=== PATIENT | female | born 1940 | race Caucasian/White ===

== ENCOUNTER 2016-12-30 09:41 | Emergency (ER) | payer MEDICARE, BC ==
[2016-12-30] MEDS ORDERED: Acetaminophen 325 MG Tab PO ONE (10:29)
[2016-12-30] MEDS ORDERED: Sodium Chloride 0.9% 10 ML Syringe FLUSH PRN ×2 (10:29)
[2016-12-30] MEDS ORDERED: Sodium Chloride 0.9% 1,000 ML IV SCH (10:30)
--- NOTE | 2016-12-30 10:43 | EDM.PDOC ---
ED HPI GENERAL MEDICAL PROBLEM - General Chief Complaint: Neuro Symptoms/Deficits Stated Complaint: NERVE TWITCHING, OUT OF BALANCE AND SLURRED SPEACH Time Seen by Provider: 12/30/16 12:00 Source of Information: Reports: Patient, Family History Limitations: Reports: No Limitations - History of Present Illness INITIAL COMMENTS - FREE TEXT/NARRATIVE: Here from out of town not feeling well for past 2 days. Having chills with rigors last nite. More confused per . No local neuro loss. No hx of stroke in past. Denies nausea or vomiting, no cough, no urinary sxs. has hx of bi-polar taking wellbuter, zyprexia and klonapin Onset: Gradual Onset Date: 12/29/16 Duration: Getting Worse Location: Reports: Generalized Quality: Reports: Ache Severity: Mild Improves with: Reports: None Worsens with: Reports: None Associated Symptoms: Reports: Fever/Chills, Malaise, Weakness Back Pain Score (Numeric/FACES): 6 Bilateral Leg Pain Score (Numeric/FACES): 4 - Related Data Allergies Allergy/AdvReac Type Severity Reaction Status Date / Time Sulfa (Sulfonamide Allergy Cannot Verified 12/30/16 10:04 Antibiotics) Remember Home Meds: Home Meds Azithromycin [IJD: Azithromycin] 250 mg PO DAILY #4 tab 12/30/16 [Rx] Ca Carbonate/Vitamin D3/Vit K [Calcium + D Soft Chewable Tab] 12/30/16 [History ] ClonazePAM [KlonoPIN] 0.5 mg PO TID 12/30/16 [History] Hydrocodone/Acetaminophen [Hydrocodon-Acetaminophen 5-325] 1 tab PO ASDIRECTED PRN 12/30/16 [History] OLANZapine [ZyPREXA Zydis] 10 mg PO BEDTIME 12/30/16 [History] buPROPion [Wellbutrin] 75 mg PO BID 12/30/16 [History] diphenhydrAMINE HCl [Sleep Aid] 12/30/16 [History] traMADol [Ultram] 12/30/16 [History] Past Medical History HEENT History: Reports: Hard of Hearing, Other (See Below) Other HEENT History: [place] Musculoskeletal History: Reports: Arthritis, Back Pain, Chronic Psychiatric History: Reports: Bipolar Hematologic History: Reports: Blood Transfusion(s) - Past Surgical History Female Surgical History: Reports: Cystectomy Musculoskeletal Surgical History: Reports: Arthroscopic Procedure, Shoulder Replacement, Shoulder Surgery Other Musculoskeletal Surgeries/Procedures:: back surgery Social & Family History - Tobacco Use Smoking Status *Q: Never Smoker - Caffeine Use Caffeine Use: Reports: Soda - Recreational Drug Use Recreational Drug Use: No ED ROS GENERAL - Review of Systems Review Of Systems: See Below Constitutional: Reports: Chills, Malaise, Weakness HEENT: Reports: No Symptoms Respiratory: Reports: No Symptoms Cardiovascular: Reports: No Symptoms Endocrine: Reports: Fatigue GI/Abdominal: Reports: No Symptoms : Reports: No Symptoms Musculoskeletal: Reports: Muscle Pain Skin: Reports: No Symptoms Neurological: Reports: Confusion, Difficulty Walking Psychiatric: Reports: No Symptoms Hematologic/Lymphatic: Reports: No Symptoms Immunologic: Reports: No Symptoms ED EXAM, SEPSIS - Physical Exam Exam: See Below Exam Limited By: No Limitations General Appearance: Alert, WD/WN Ears: Normal External Exam, Normal Canal, Normal TMs Nose: Normal Inspection Throat/Mouth: Normal Inspection, Normal Oropharynx Head: Atraumatic, Normocephalic Neck: Normal Inspection Respiratory/Chest: No Respiratory Distress, Lungs Clear, No Accessory Muscle Use Cardiovascular: Normal Peripheral Pulses, Regular Rate, Rhythm, No Edema, No Murmur, Tachycardia GI/Abdominal: Normal Bowel Sounds, Soft, Non-Tender, No Distention, No Abnormal Bruit Back: Normal Inspection Extremities: Normal Inspection, Normal Range of Motion, Normal Capillary Refill Neurological: Alert, Oriented, CN II-XII Intact, Normal Reflexes, No Motor/ Sensory Deficits Psychiatric: Normal Affect, Flat Affect Skin: Warm, Dry Lymphatic: Left: No Adenopathy Course - Vital Signs Last Recorded V/S: Last Vital Signs Temp 38.2 C H 12/30/16 12:41 Pulse 98 12/30/16 12:41 Resp 20 12/30/16 12:41 BP 130/72 12/30/16 12:41 Pulse Ox 93 L 12/30/16 12:41 - Orders/Labs/Meds Orders: Active Orders 24 hr Category Date Time Status Peripheral IV Care [RC] . DIRECTED Care 12/30/16 10:31 Active Up With Assistance [RC] ASDIRECTED Care 12/30/16 10:29 Active Vital Signs [RC] Q1H Care 12/30/16 10:29 Active Clear Liquid Diet [DIET] Diet 12/30/16 Breakfast Active CULTURE BLOOD [BC] Urgent Lab 12/30/16 10:30 Received CULTURE BLOOD [BC] Urgent Lab 12/30/16 10:40 Received Sodium Chloride 0.9% [Normal Saline] 1,000 ml Med 12/30/16 10:30 Active IV .BOLUS Sodium Chloride 0.9% [Saline Flush] Med 12/30/16 10:29 Active 10 ml FLUSH ASDIRECTED PRN Sodium Chloride 0.9% [Saline Flush] Med 12/30/16 10:29 Active 10 ml FLUSH ASDIRECTED PRN Blood Culture x2 Reflex Set [OM.PC] Urgent Oth 12/30/16 10:29 Ordered Peripheral IV Insertion Adult [OM.PC] Urgent Oth 12/30/16 10:29 Ordered Medication Orders Sodium Chloride (Normal Saline) 1,000 mls @ 1,000 mls/hr IV .BOLUS MEE Last Admin: 12/30/16 10:44 Dose: 1,000 mls/hr Sodium Chloride (Saline Flush) 10 ml FLUSH ASDIRECTED PRN PRN Reason: Keep Vein Open Last Admin: 12/30/16 10:44 Dose: 10 ml Sodium Chloride (Saline Flush) 10 ml FLUSH ASDIRECTED PRN PRN Reason: Keep Vein Open Last Admin: 12/30/16 10:44 Dose: 10 ml Labs: Laboratory Tests 12/30/16 12/30/16 12/30/16 Range/Units 10:40 10:40 10:40 WBC 11.3 H (4.5-11.0) K/uL RBC 3.59 (3.30-5.50) M/uL Hgb 10.6 L (12.0-15.0) g/dL Hct 32.5 L (36.0-48.0) % MCV 91 (80-98) fL MCH 30 (27-31) pg MCHC 33 (32-36) % Plt Count 136 L (150-400) K/uL Neut % (Auto) 80 H (36-66) % Lymph % (Auto) 8 L (24-44) % [place] % (Auto) 12 H (2-6) % Eos % (Auto) 0 L (2-4) % Baso % (Auto) 0 (0-1) % Sodium 139 L (140-148) mmol/L Potassium 4.0 (3.6-5.2) mmol/L Chloride 105 (100-108) mmol/L Carbon Dioxide 20 L (21-32) mmol/L Anion Gap 18.0 H (5.0-14.0) mmol/L BUN 30 H (7-18) mg/dL Creatinine 2.1 H (0.6-1.0) mg/dL Est Cr Clr Drug Dosing 17.74 mL/min Estimated GFR (MDRD) 23 L (>60) Glucose 119 H (74-106) mg/dL Lactic Acid 1.5 (0.4-2.0) mmol/L Calcium 8.3 L (8.5-10.1) mg/dL Total Bilirubin 0.7 (0.2-1.0) mg/dL AST 33 (15-37) U/L ALT 29 (12-78) U/L Alkaline Phosphatase 106 (46-116) U/L Total Protein 6.7 (6.4-8.2) g/dL Albumin 3.1 L (3.4-5.0) g/dL Globulin 3.6 H (2.3-3.5) g/dL Albumin/Globulin Ratio 0.9 L (1.2-2.2) Urine Color Urine Appearance Urine pH (4.5-8.0) Ur Specific [place] (1.008-1.030) Urine Protein (NEGATIVE) mg/dL Urine Glucose (UA) (NEGATIVE) mg/dL Urine Ketones (NEGATIVE) mg/dL Urine Occult Blood (NEGATIVE) Urine Nitrite (NEGATIVE) Urine Bilirubin (NEGATIVE) Urine Urobilinogen (NORMAL) mg/dL Ur Leukocyte Esterase (NEGATIVE) Urine RBC (0-5) Urine WBC (0-5) Ur Epithelial Cells Amorphous Sediment Urine Bacteria Urine Mucus 12/30/16 Range/Units 11:19 WBC (4.5-11.0) K/uL RBC (3.30-5.50) M/uL Hgb (12.0-15.0) g/dL Hct (36.0-48.0) % MCV (80-98) fL MCH (27-31) pg MCHC (32-36) % Plt Count (150-400) K/uL Neut % (Auto) (36-66) % Lymph % (Auto) (24-44) % [place] % (Auto) (2-6) % Eos % (Auto) (2-4) % Baso % (Auto) (0-1) % Sodium (140-148) mmol/L Potassium (3.6-5.2) mmol/L Chloride (100-108) mmol/L Carbon Dioxide (21-32) mmol/L Anion Gap (5.0-14.0) mmol/L BUN (7-18) mg/dL Creatinine (0.6-1.0) mg/dL Est Cr Clr Drug Dosing mL/min Estimated GFR (MDRD) (>60) Glucose (74-106) mg/dL Lactic Acid (0.4-2.0) mmol/L Calcium (8.5-10.1) mg/dL Total Bilirubin (0.2-1.0) mg/dL AST (15-37) U/L ALT (12-78) U/L Alkaline Phosphatase (46-116) U/L Total Protein (6.4-8.2) g/dL Albumin (3.4-5.0) g/dL Globulin (2.3-3.5) g/dL Albumin/Globulin Ratio (1.2-2.2) Urine Color Yellow Urine Appearance Slightly cloudy Urine pH 6.0 (4.5-8.0) Ur Specific [place] 1.010 (1.008-1.030) Urine Protein Trace (NEGATIVE) mg/dL Urine Glucose (UA) Normal (NEGATIVE) mg/dL Urine Ketones Negative (NEGATIVE) mg/dL Urine Occult Blood Large (NEGATIVE) Urine Nitrite Positive H (NEGATIVE) Urine Bilirubin Negative (NEGATIVE) Urine Urobilinogen Normal (NORMAL) mg/dL Ur Leukocyte Esterase Moderate (NEGATIVE) Urine RBC 5-10 H (0-5) Urine WBC Semi-packed H (0-5) Ur Epithelial Cells Few Amorphous Sediment Not seen Urine Bacteria Many Urine Mucus Not seen Meds: Medications Generic Name Dose Route Start Last Admin Trade Name Freq PRN Reason Stop Dose Admin Sodium Chloride 1,000 mls @ 1,000 mls/hr 12/30/16 10:30 12/30/16 10:44 Normal Saline IV 1,000 mls/hr .BOLUS MEE Administration Sodium Chloride 10 ml 12/30/16 10:29 12/30/16 10:44 Saline Flush FLUSH 10 ml ASDIRECTED PRN Administration Keep Vein Open Sodium Chloride 10 ml 12/30/16 10:29 12/30/16 10:44 Saline Flush FLUSH 10 ml ASDIRECTED PRN Administration Keep Vein Open Discontinued Medications Generic Name Dose Route Start Last Admin Trade Name Reny PRN Reason Stop Dose Admin Acetaminophen 650 mg 12/30/16 10:29 12/30/16 10:44 Tylenol PO 12/30/16 10:30 650 mg NOW ONE Administration Ceftriaxone Sodium 2 gm/ 50 mls @ 100 mls/hr 12/30/16 11:33 12/30/16 12:02 Sodium Chloride IV 12/30/16 12:02 100 mls/hr ONETIME ONE Administration Azithromycin 500 mg/ Sodium 250 mls @ 250 mls/hr 12/30/16 11:34 12/30/16 12: 52 Chloride IV 12/30/16 12:33 250 mls/hr ONETIME ONE Administration - Re-Assessments/Exams Free Text/Narrative Re-Assessment/Exam: 12/30/16 11:37 X-ray results with a right lower infiltrate[place] [id number], lactate normal Will order rocephin and zithromycin one time Departure - Departure Time of Disposition: 14:59 Disposition: Home, Self-Care 01 Clinical Impression: Pneumonia Qualifiers: Pneumonia type: due to unspecified organism Lung location: lower lobe of lung - Discharge Information Forms: ED Department Discharge - Problem List Review Problem List Initiated/Reviewed/Updated: Yes - My Orders Last 24 Hours: My Active Orders 12/30/16 10:29 Up With Assistance [RC] ASDIRECTED Vital Signs [RC] Q1H Sodium Chloride 0.9% [Saline Flush] 10 ml FLUSH ASDIRECTED PRN Sodium Chloride 0.9% [Saline Flush] 10 ml FLUSH ASDIRECTED PRN Blood Culture x2 Reflex Set [OM.PC] Urgent Peripheral IV Insertion Adult [OM.PC] Urgent 12/30/16 10:30 CULTURE BLOOD [BC] Urgent Sodium Chloride 0.9% [Normal Saline] 1,000 ml IV .BOLUS 12/30/16 10:31 Peripheral IV Care [RC] . DIRECTED 12/30/16 10:40 CULTURE BLOOD [BC] Urgent 12/30/16 Breakfast Clear Liquid Diet [DIET] - Assessment/Plan Last 24 Hours: My Active Orders 12/30/16 10:29 Up With Assistance [RC] ASDIRECTED Vital Signs [RC] Q1H Sodium Chloride 0.9% [Saline Flush] 10 ml FLUSH ASDIRECTED PRN Sodium Chloride 0.9% [Saline Flush] 10 ml FLUSH ASDIRECTED PRN Blood Culture x2 Reflex Set [OM.PC] Urgent Peripheral IV Insertion Adult [OM.PC] Urgent 12/30/16 10:30 CULTURE BLOOD [BC] Urgent Sodium Chloride 0.9% [Normal Saline] 1,000 ml IV .BOLUS 12/30/16 10:31 Peripheral IV Care [RC] . DIRECTED 12/30/16 10:40 CULTURE BLOOD [BC] Urgent 12/30/16 Breakfast Clear Liquid Diet [DIET] Plan: feeling better after fluids and IV rocephin and zithromax. She will discharged to home with oral zithromax for next 4 days. Encouraged to rest, get plenty of fluids and to follow with her PMD in next week
--- NOTE | 2016-12-30 11:14 | CR ---
Chest 1V Frontal INDICATION: fever FINDINGS: No comparison. AP portable technique accentuates heart size and pulmonary vascularity. Min imal density in the right lung base medially could represent early developing infiltrate or atelecta sis. A PA and lateral chest x-ray would be helpful when clinically feasible. Right total shoulder ar throplasty. Lumbar curve. Exam otherwise unremarkable.
[2016-12-30] MEDS ORDERED: cefTRIAXone 2 GM in Sodium Chloride 0.9% 50 ML IV ONE (11:33)
[2016-12-30] MEDS ORDERED: Azithromycin 500 MG in Sodium Chloride 0.9% 250 ML IV ONE (11:34)
[2016-12-30 12:42] VITALS: BP 130/72
== END 2016-12-30 15:13 | disposition home or self-care (01) ==
LOC: JP.ED 09:41
DX: J18.9 Pneumonia, unspecified organism (principal); Z98.890 Other specified postprocedural states; Z96.619 Presence of unspecified artificial shoulder joint; Z79.2 Long term (current) use of antibiotics; Z79.899 Other long term (current) drug therapy; Z88.2 Allergy status to sulfonamides
CPT/HCPCS: 36415; 71010; 80053; 81001; 83605; 85025; 87040; 96361; 96365; 96367; 99284; A9270; J0456; J0696; J7040; J7050